=== PATIENT | female | born 1960 | race Caucasian/White ===

== ENCOUNTER 2016-10-29 12:11 | Day surgery (SDC) | payer MEDICAID ==
[~2016-10-29] VITALS: Ht 149.9 cm; Wt 81.4 kg
[~2016-10-29 12:11] MED LIST: 0.9% SODIUM CHLORIDE 10 ML VIAL IVP ONE; AMLO-512 PO; CALC-52 PO; IBUP-2070 PO; LIDOCAINE HCL/PF 2% 5 ML VIAL IM ONE; MULT-1118 PO; PROPOFOL 1% 20 ML VIAL IVP ONE; TRAZ-144 PO
[2016-10-29] MEDS ORDERED: SODIUM CHLORIDE 0.9% 1,000 ML IV ONE ×3 (12:15→14:49)
== END 2016-10-29 16:30 | disposition home or self-care (01) ==
LOC: SURGERY 12:11
PROVIDERS: ATTEND Internal Medicine Gastroenterology
DX: K63.89 Other specified diseases of intestine (principal); K57.30 Diverticulosis of large intestine without perforation or abscess without bleeding; K64.8 Other hemorrhoids; I10 Essential (primary) hypertension; F17.210 Nicotine dependence, cigarettes, uncomplicated
CPT/HCPCS: 45380; 45381; 88305; C1769; J2704; J3490; J7030

== ENCOUNTER 2021-02-12 16:36 | Emergency (ER) | payer MEDICAID ==
[~2021-02-12] VITALS: Ht 152.4 cm; Wt 77.3 kg
[~2021-02-12 16:36] MED LIST changes: -0.9% SODIUM CHLORIDE 10 ML VIAL IVP ONE; +AMLO-258 PO; -AMLO-512 PO; -IBUP-2070 PO; -LIDOCAINE HCL/PF 2% 5 ML VIAL IM ONE; -PROPOFOL 1% 20 ML VIAL IVP ONE; -TRAZ-144 PO; +TRAZ-252 PO
[2021-02-12 16:52] VITALS: BP 157/80
== END 2021-02-12 19:15 | disposition home or self-care (01) ==
LOC: EMS 16:37
DX: B02.9 Zoster without complications (principal)
CPT/HCPCS: 99283; Z7502

== ENCOUNTER 2023-11-03 12:25 | Emergency (ER) | payer MEDICAID ==
[~2023-11-03] VITALS: Ht 152.4 cm; Wt 8.2 kg
[~2023-11-03 12:25] MED LIST changes: +CALC-358 PO; -CALC-52 PO
[2023-11-03 12:40] VITALS: TEMP 98.9
[2023-11-03 12:55] LABS: BASOPHILS % (AUTO) 1.1 % (0.0-2.0); EOSINOPHILS % (AUTO) 5.8 % (1.0-6.0); HEMATOCRIT 31.4 % (36-46); HEMOGLOBIN 10.5 g/dL (12.0-16.0); LYMPHOCYTES % (AUTO) 20.2 % (22.0-44.0); MEAN CORPUSCULAR HEMOGLOBIN 27.3 pg (26.0-34.0); MEAN CORPUSCULAR HGB CONC 33.4 G/dL (31.0-37.0); MEAN CORPUSCULAR VOLUME 82 fL (80-100); NEUTROPHILS # (AUTO) 6.3 K/uL (1.8-7.7); NEUTROPHILS % (AUTO) 62.9 % (40.0-70.0); PLATELET COUNT (AUTO) 117 K/uL (150-450); RED BLOOD CELL COUNT(AUTO) 3.84 MIL/uL (4.00-5.20)
[2023-11-03 13:21] LABS: CALCIUM, TOTAL 8.3 mg/dL (8.8-10.5); CREATININE 1.06 mg/dL (0.60-1.30)
[2023-11-03 13:27] LABS: TROPONIN I-HIGH SENSITIVITY 10 ng/L (<51)
[2023-11-03 13:28] LABS: ALBUMIN 2.8 g/dL (3.4-5.0); BILIRUBIN,TOTAL 1.3 mg/dL (0.1-1.0); TOTAL PROTEIN, SERUM 8.6 g/dL (6.4-8.2)
[2023-11-03 15:31] LABS: D-DIMER 3.63 mg/L FEU (0.00-0.50); PROTHROMBIN TIME 10.2 SEC (9.4-11.6)
[2023-11-03 15:32] LABS: TROPONIN I-HIGH SENSITIVITY 14 ng/L (<51)
[2023-11-03] MEDS ORDERED: POTA-189 PO (18:37)
[2023-11-03] MEDS ORDERED: FURO-152 PO (18:37)
[2023-11-03] MEDS ORDERED: ASPI-2 PO (18:37)
[2023-11-03 19:01] VITALS: BP 145/83; PULSE 83; RESP 18
== END 2023-11-03 19:03 | disposition home or self-care (01) ==
LOC: EMS 12:35
DX: R07.89 Other chest pain (principal); R73.03 Prediabetes; E78.00 Pure hypercholesterolemia, unspecified; I10 Essential (primary) hypertension
CPT/HCPCS: 71045; 80053; 82550; 83880; 84484; 85025; 85379; 85610; 93005; 93970; 99285; 36415-L1; 36415-TC